=== PATIENT | female | born 2000 | race Caucasian/White ===

== ENCOUNTER 2025-04-12 10:32 | Emergency (ER) | payer BC ==
[~2025-04-12] VITALS: Ht 162.6 cm; Wt 64.4 kg
[2025-04-12 10:51] VITALS: TEMP 98.3
[2025-04-12] MEDS ORDERED: ONDANSETRON HCL/PF 4 MG/2 ML VIAL ONE (11:12)
[2025-04-12] MEDS ORDERED: FAMOTIDINE/PF INJ 20 MG/2 ML VIAL IV ONE (11:12)
[2025-04-12] MEDS: ONDANSETRON HCL/PF 4 MG/2 ML VIAL IVP ONE (11:30)
[2025-04-12] MEDS: FAMOTIDINE/PF INJ 20 MG/2 ML VIAL IV ONE (11:30)
[2025-04-12] MEDS: IV NS 0.9% 1,000 ML BAG IV ONE (11:30)
[2025-04-12 11:32] LABS: BASOPHILS % (AUTO) 0.7 % (0.0-2.0); EOSINOPHILS # (AUTO) 0.1 K/uL (0.0-0.7); EOSINOPHILS % (AUTO) 1.6 % (0.0-6.0); HEMATOCRIT 38 % (33-45); HEMOGLOBIN 12.4 g/dL (11.5-14.8); LYMPHOCYTES # (AUTO) 3.2 K/uL (0.8-4.8); LYMPHOCYTES % (AUTO) 43.4 % (20.0-44.0); MEAN CORPUSCULAR HEMOGLOBIN 21 PG (26.0-33.0); MEAN CORPUSCULAR HGB CONC 32 g/dl (31.0-36.0); MEAN CORPUSCULAR VOLUME 63 fL (82-100); MONOCYTES # (AUTO) 0.5 K/uL (0.1-1.30); MONOCYTES % (AUTO) 6.6 % (2.0-12.0); NEUTROPHILS # (AUTO) 3.5 K/uL (1.8-8.9); NEUTROPHILS % (AUTO) 47.7 % (43.0-81.0); PLATELET COUNT (AUTO) 321 K/uL (150-450); RED BLOOD CELL COUNT(AUTO) 6.06 MIL/uL (4.0-5.2); RED CELL DISTRIBUTION WIDTH 15.8 % (11.5-15.0); WHITE BLOOD COUNT (AUTO) 7.4 K/uL (4.3-11.0)
[2025-04-12 11:39] LABS: CALCIUM, SERUM 9.9 mg/dL (8.5-10.1); CREATININE 0.7 mg/dL (0.6-1.3); POTASSIUM 4.1 mmol/L (3.5-5.1)
[2025-04-12 11:45] LABS: ALBUMIN 4.3 g/dL (3.4-5.0); BILIRUBIN,DIRECT 0.2 mg/dL (0.0-0.2); BILIRUBIN,TOTAL 1.1 mg/dL (0.2-1.0); TOTAL PROTEIN, SERUM 8.3 g/dL (6.4-8.2)
[2025-04-12 12:06] LABS: PREGNANCY TEST URINE QUAL NEGATIVE (NEGATIVE)
[2025-04-12 12:08] LABS: APPEARANCE,URINE CLEAR (CLEAR); BILIRUBIN,URINE NEGATIVE (NEGATIVE); BLOOD, URINE NEGATIVE Ery/uL (NEGATIVE); COLOR,URINE YELLOW (YELLOW); KETONES,URINE NEGATIVE (NEGATIVE); LEUKOCYTE ESTERASE ,URINE NEGATIVE (NEGATIVE); NITRITE, URINE NEGATIVE (NEGATIVE); PROTEIN,URINE NEGATIVE (NEGATIVE); UGLUCOSE NEGATIVE (NEGATIVE); UROBILINOGEN,URINE 0.2 EU/dL (0.2)
[2025-04-12] MEDS ORDERED: ONDA4TAB5 PO (13:22)
[2025-04-12 13:49] VITALS: BP 118/70; O2SAT 98
== END 2025-04-12 13:48 | disposition home or self-care (01) ==
LOC: ER 10:37 → EDBD 10:37 → ER 13:48
DX: R10.31 Right lower quadrant pain (principal); R11.0 Nausea; R10.2 Pelvic and perineal pain
CPT/HCPCS: 99285; 74176; 96374; 96361; 96375; 85025; 80048; 87086; 83690; 80076; 84703; 81003; 36415; 84702; J1308; J2405; J7030